=== PATIENT | male | born 1995 | race Caucasian/White ===

== ENCOUNTER 2023-12-02 02:41 | Emergency (ER) | payer BC ==
[~2023-12-02] VITALS: Ht 167.6 cm; Wt 49.9 kg
[2023-12-02 02:46] VITALS: BP_SYST 117; PULSE 86; RESP 16; TEMP 97; O2SAT 97
[2023-12-02 05:29] VITALS: BP_SYST 127; PULSE 105; RESP 18; TEMP 97.1; O2SAT 99
== END 2023-12-02 05:22 | disposition home or self-care (01) ==
LOC: SED 02:41
DX: S00.531A Contusion of lip, initial encounter (principal); F10.129 Alcohol abuse with intoxication, unspecified; W01.0XXA Fall on same level from slipping, tripping and stumbling without subsequent striking against object, initial encounter; Y93.89 Activity, other specified; Y92.89 Other specified places as the place of occurrence of the external cause; Y99.8 Other external cause status; Y90.6 Blood alcohol level of 120-199 mg/100 ml
CPT/HCPCS: 70450-TC; 99284